=== PATIENT | female | born 1995 | race Caucasian/White ===

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

== ENCOUNTER 2017-06-01 21:44 | Emergency (ER) | payer BC ==
[~2017-06-01] VITALS: Ht 157.5 cm; Wt 68.0 kg
[~2017-06-01 21:44] MED LIST changes: +ACET250T3; +SODI3.5O4; +brimonidine
[2017-06-01] MEDS ORDERED: TETRACAINE 0.5% OPHTH SOLN 4 ML BTL (SINGLE DOSE ONLY) OP ONE (22:00)
[2017-06-01] MEDS ORDERED: ONDANSETRON 8 MG (ZOFRAN) ORAL DISSOLVE TAB PO ONE (22:00)
[2017-06-01] MEDS ORDERED: KETOROLAC 60 MG/2 ML VIAL IM ONE (22:00)
[2017-06-01] MEDS ORDERED: diphenhydrAMINE 50 MG/ML INJ (BENADRYL) IM ONE (22:00)
[2017-06-01] MEDS ORDERED: ONDANSETRON 4 MG (ZOFRAN) ORAL DISSOLVE TAB ONE (22:01)
--- NOTE | 2017-06-01 22:01 | ED Headache ---
General Chief Complaint: Head/Cervical Problems Stated Complaint: NAUSEA;MIGRAINE Source: patient Exam Limitations: no limitations History of Present Illness Date Seen by Provider: Jun 01, 2017 Time Seen by Provider: 21:56 Initial Comments To ER with a migraine, nausea without vomiting, pain behind the right eye since about 5 PM this evening. She had an energy drink thinking that the caffeine might help, she took a leftover Ultram at home in addition to Tylenol without improvement. She denies vision changes in the right eye, only pain behind the right eye. She has a history of glaucoma in the left eye secondary to a traumatic eye injury at the age of 6. She does have an implanted lens on the left with placement of a Xen Gel stent/shunt in january Timing/Duration: 4-6 hours Severity/Quality: moderate Location: frontal Modifying Factors: worse with exposure to light Associated Symptoms: nausea/vomiting Allergies and Home Medications Allergies Coded Allergies: neomycin (Verified Allergy, Unknown, 05/09/16) Home Medications Brimonidine Tartrate 5 Ml Btl, 1 DROP OS UD, (Reported) Patient Home Medication List Home Medication List Reviewed: Yes Review of Systems Constitutional: see HPI Eyes: See HPI, Photophobia Ears, Nose, Mouth, Throat: no symptoms reported Respiratory: no symptoms reported Cardiovascular: no symptoms reported Gastrointestinal: nausea, No vomiting Genitourinary: no symptoms reported Musculoskeletal: no symptoms reported Skin: no symptoms reported Past Eeonqib-Zcmkoz-Dskyqd Hx Patient Social History Alcohol Beverage of Choice: Beer 2nd Hand Smoke Exposure: No Recent Foreign Travel: No Contact w/Someone Who Travel: No Recent Hopitalizations: No Immunizations Up To Date Tetanus Booster (TDap): Less than 5yrs PED Vaccines UTD: No Seasonal Allergies Seasonal Allergies: No Past Medical History Surgeries: Yes (shunt left eye) Orthopedic Respiratory: No Cardiac: No Neurological: Yes Headaches /Migraines Reproductive Disorders: Yes Female Reproductive Disorders: Endometriosis Genitourinary: No Gastrointestinal: No Musculoskeletal: No Endocrine: No HEENT: Yes (L eye glaucoma) Glaucoma Cancer: No Psychosocial: No Integumentary: No Blood Disorders: No Family Medical History No Pertinent Family Hx Physical Exam Vital Signs Vital Signs - First Documented 06/01/17 21:46 Temp 96.7 Pulse 95 Resp 20 B/P (MAP) 133/81 (98) Pulse Ox 96 O2 Delivery Room Air Capillary Refill : General Appearance: WD/WN, no apparent distress HEENT: PERRL/EOMI, normal ENT inspection, other (the left eye has a very hazy cornea with irregular pupil, patient states this is normal.) Neck: non-tender, full range of motion Respiratory: no respiratory distress, no accessory muscle use Gastrointestinal: normal bowel sounds, non tender Extremities: normal range of motion, non-tender Psychiatric: alert, oriented x 3 Crainal Nerves: normal hearing, normal speech, PERRL Skin: normal color, warm/dry Progress/Results/Core Measures My Orders Orders - SHASHA ESTRADA APRN Tetracaine 0.5% Ophth Nanci Sdv (Tetracai (06/01/17 22:00) Ketorolac Injection (Toradol Injection) (06/01/17 22:00) Diphenhydramine Injection (Benadryl Inje (06/01/17 22:00) Ondansetron Oral Dissolve Tab (Zofran O (06/01/17 22:00) Ondansetron Oral Dissolve Tab (Zofran (06/01/17 22:01) Ondansetron Oral Dissolve Tab (Zofran (06/01/17 22:15) Medications Given in ED Current Medications Medications Dose Ordered Sig/Marianela Route Start Time Stop Time Status Last Admin Dose Admin Diphenhydramine HCl 25 mg ONCE ONCE IM 06/01/17 22:00 06/01/17 22:02 DC 06/01/17 22:14 25 MG Ketorolac Tromethamine 60 mg ONCE ONCE IM 06/01/17 22:00 06/01/17 22:02 DC 06/01/17 22:15 60 MG Ondansetron HCl 8 mg ONCE ONCE PO 06/01/17 22:15 06/01/17 22:41 DC 06/01/17 22:16 8 MG Tetracaine HCl 0.1 ml ONCE ONCE OP 06/01/17 22:00 06/01/17 22:01 DC 06/01/17 22:12 0.1 ML Vital Signs/I&O Vital Sign - Last 12Hours 06/01/17 21:46 Temp 96.7 Pulse 95 Resp 20 B/P (MAP) 133/81 (98) Pulse Ox 96 O2 Delivery Room Air Departure Communication (Admissions) Intraocular pressures measured on the left at 27 then 32 then 32. On the right eye measured 29, then 25, then 21. 2246- headache is now rated at a 3 out of 10. Patient is comfortable with going home at this point. Impression Primary Impression: H/O: glaucoma Additional Impression: Headache Disposition: HOME, SELF-CARE Condition: Improved Departure-Patient Inst. Decision time for Depature: 22:15 Referrals: [facility] (PCP/Family) Primary Care Physician Patient Instructions: Headache, Adult (DC) Add. Discharge Instructions: 1. Return to ER for any concerns 2. See her doctor as scheduled. All discharge instructions reviewed with patient and/or family. Voiced understanding. SHASHA ESTRADA AUTOMOTIVE TIRE TESTER Jun 01, 2017 22:01
[2017-06-01] MEDS ORDERED: ONDANSETRON 4 MG (ZOFRAN) ORAL DISSOLVE TAB PO ONE (22:15)
[2017-06-01 22:46] VITALS: BP 133/81
== END 2017-06-01 22:46 | disposition home or self-care (01) ==
LOC: EDUNIT# 21:44 → ER 21:45
DX: R51 Headache (principal); Z86.69 Personal history of other diseases of the nervous system and sense organs; Z88.1 Allergy status to other antibiotic agents; Z96.1 Presence of intraocular lens
CPT/HCPCS: 96372; 99284

== ENCOUNTER 2017-09-12 03:29 | Emergency (ER) | payer BC ==
[~2017-09-12] VITALS: Ht 157.5 cm; Wt 70.8 kg
[~2017-09-12 03:29] MED LIST changes: -DORZ10DR24 OS; +DORZ10DR8 OS
[2017-09-12] MEDS ORDERED: TETRACAINE 0.5% OPHTH SOLN 4 ML BTL (SINGLE DOSE ONLY) OU ONE (04:00)
--- NOTE | 2017-09-12 04:42 | ED Headache ---
General Chief Complaint: Head/Cervical Problems Stated Complaint: TAMAYO,RT EYE HURTS Nursing Triage Note: PT PRESENTS TO ER WITH COMPLAINT OF HEADACHE AND PAIN BEHIND HER RIGHT EYE. STATES SHE HAS HAD THE HEADACHE FOR 12 HOURS, TAKEN EXCEDRIN AND IBUPROFEN. Nursing Sepsis Screen: No Definite Risk (ERASMO DEY STUDENT) History of Present Illness Date Seen by Provider: Sep 12, 2017 Time Seen by Provider: 04:00 Initial Comments This is a 22 y/o female presenting to the ED with complaints of headache and pain behind the R eye that started around 1500 on 09/11. Pt has a history of migraines and glaucoma in the left eye. Pt reports recently having a lens implant in the L eye in January 2017. Patient states that she believes this is a migraine, but is worried she may be developing glaucoma in the R eye. Pt reports taking Excedrin and ibuprofen without relief. Pt admits to photophobia, nausea, dizziness, light headedness; denies vomiting, visual changes or L eye pain. Pt was seen in [facility] by Dr. Landeros in [place], [place] most recently. Pt is no longer taking prescription eye drops. Pt has had multiple surgeries on her L eye, she had a trauma when she was 9 and then developed glaucoma. She reports that she has minimal vision in the L eye and currently has corneal edema. (ERASMO DEY) Allergies and Home Medications Allergies Coded Allergies: neomycin (Verified Allergy, Unknown, 05/09/16) Home Medications Brimonidine Tartrate 5 Ml Btl, 1 DROP OS UD, (Reported) Ondansetron 4 Mg Tab.rapdis, 4 MG SL Q4H PRN for NAUSEA/VOMITING-1ST LINE Prescribed by: LINDA RUEDA on 09/12/17 0556 Sumatriptan Succinate 25 Mg Tablet, 25 MG PO UD Take one tablet at headache onset. Repeat in 2 hours if needed. Do not exceed 2 doses in one day. Do not take if . Prescribed by: LINDA RUEDA on 09/12/17 [id number] Patient Home Medication List Home Medication List Reviewed: Yes (ERASMO DEY STUDENT) Review of Systems Constitutional: see HPI, dizziness Eyes: Denies Blurred Vision, Denies Decreased Acuity; Pain, Photophobia, Other (PMH: Glaucoma in L eye with decreased vision ) Ears, Nose, Mouth, Throat: no symptoms reported Respiratory: no symptoms reported Cardiovascular: no symptoms reported Gastrointestinal: nausea; No vomiting Genitourinary: no symptoms reported Musculoskeletal: no symptoms reported (ERASMO DEY) Past Zbrcdkl-Sacctn-Nmwvqv Hx Patient Social History Alcohol Use: Occasionally Uses Number of Drinks Today: AA Alcohol Beverage of Choice: Beer Recreational Drug Use: No Smoking Status: Never a Smoker 2nd Hand Smoke Exposure: No Recent Foreign Travel: No Contact w/Someone Who Travel: No Recent Infectious Disease Expo: No Recent Hopitalizations: No (ERASMO DEY) Immunizations Up To Date Tetanus Booster (TDap): Less than 5yrs PED Vaccines UTD: No (ERASMO DEY) Seasonal Allergies Seasonal Allergies: No (ERASMO DEY) Past Medical History Surgeries: Yes (stenting and implant left eye) Orthopedic Respiratory: No Cardiac: No Neurological: Yes Headaches /Migraines Reproductive Disorders: Yes Female Reproductive Disorders: Endometriosis Genitourinary: No Gastrointestinal: No Musculoskeletal: No Endocrine: No HEENT: Yes (L eye glaucoma) Glaucoma Cancer: No Psychosocial: No Integumentary: No Blood Disorders: No (ERASMO DEY) Family Medical History No Pertinent Family Hx (ERASMO DEY) Physical Exam Vital Signs Vital Signs - First Documented 09/12/17 03:35 Temp 96.8 Pulse 80 Resp 20 B/P (MAP) 138/73 (94) Pulse Ox 99 O2 Delivery Room Air (LINDA PEDERSEN MD) Vital Signs Capillary Refill : Less Than 3 Seconds (ERASMO DEY) Height, Weight, BMI Height: 5'2.00" Weight: 156lbs. oz. 70.454393ro; 21.09 BMI Method:Stated General Appearance: WD/WN, no apparent distress HEENT: other (Right eye: PERRL, EOMI, gross visual acuity intact; Left eye: decreased vision and EOM, post surgical deformities) Cardiovascular: normal peripheral pulses, regular rate, rhythm, no edema, no gallop, no JVD, no murmur Respiratory: chest non-tender, lungs clear, normal breath sounds, no respiratory distress, no accessory muscle use Crainal Nerves: normal hearing, normal speech Coordination/Gait: normal finger to nose, normal gait Skin: normal color, warm/dry (ERASMO DEY STUDENT) Progress/Results/Core Measures Results/Orders My Orders Orders - LINDA PEDERSEN MD Tetracaine 0.5% Ophth Nanci Sdv (Tetracai (09/12/17 04:00) Ondansetron Oral Dissolve Tab (Zofran (09/12/17 04:45) Ketorolac Injection (Toradol Injection) (09/12/17 04:45) Im/Sub-Q Injection Non-Ab Ed (09/12/17 ) (LINDA PEDERSEN MD) Medications Given in ED (LINDA PEDERESN MD) Vital Signs/I&O 09/12/17 09/12/17 03:35 05:54 Temp 96.8 96.8 Pulse 80 73 Resp 20 18 B/P (MAP) 138/73 (94) 128/81 (94) Pulse Ox 99 97 O2 Delivery Room Air Room Air (LINDA PEDERSEN MD) Blood Pressure Mean: 94 Progress Progress Note : Time: 04:17 Progress Note Pt seen and examined. Tocometer was used to assess eye pressure due to history of glaucoma: R eye- 18, L- 25 with 85% accuracy. Repeated L eye with 27 at 80% accuracy. Due to surgery in L eye, this may be disrupting the tocometer accuracy. Pt denied any pain in the L eye. Pt symptoms are likely to be a migraine rather than glaucoma, will proceed with injection of Toradol and sublingual zofran (ERASMO DEY MED STUDENT) Progress Note : Progress Note Patient was interviewed, seen, and examined by me personally along with Erasmo 's MELBA Dey student. I reviewed her documentation. I agree with her history, assessment, plan, and exam with the following additions. Tocometer readings were normal in the right eye and slightly elevated in the left eye. The confidence was low on the left eye readings likely due to the surgical changes of the eye. I discussed the case with Dr. Kelley who is on-call for [facility] in [place]. He advised that the patient start some of her glaucoma drops previously prescribed and follow-up for a pressure check with her primary transmitter chief/materials planning analyst tomorrow. We discussed medications appropriate for migraine. He stated her eye condition should not limit her use of any medications for migraine. Patient was given Toradol and Zofran for treatment of her symptoms. She was given a prescription for Imitrex to try if she were to have any further headaches refractory to ibuprofen and Tylenol use. Exam: Gen.: Alert, oriented, no acute distress HEENT: normocephalic and atraumatic, right eye demonstrates no erythema or edema. Pupil is reactive to light and accommodation. Vision grossly intact. Left eye is disfigured due to prior surgery. Heart: Regular rate and rhythm Lungs: Clear to auscultation, normal effort Neuro: Alert, oriented, no acute distress, no focal deficits except vision impairment in the left eye (LINDA PEDERSEN MD) Departure Impression Primary Impression: Migraine headache Qualified Codes: G43.909 - Migraine, unspecified, not intractable, without status migrainosus Additional Impression: Glaucoma Qualified Codes: H40.9 - Unspecified glaucoma Disposition: 01 HOME, SELF-CARE Condition: Improved Departure-Patient Inst. Decision time for Depature: 05:42 (LINDA PEDERSEN MD) Referrals: [facility] (PCP/Family) Primary Care Physician Patient Instructions: Glaucoma, Migraine Headache (DC) Add. Discharge Instructions: For headaches, use ibuprofen up to 600 mg every 6 hours and Tylenol ( acetaminophen) up to 1000 mg every 6 hours as your primary medications. It is also acceptable to use caffeine or products containing caffeine. If these medications are not effectively treating her migraine within 30 minutes, try Imitrex as prescribed. For nausea take Zofran (ondansetron) as prescribed. Whenever possible, rest in a quiet, calm, dark environment as soon as headache develops. Stay well-hydrated with plenty of clear liquids. Follow-up with Dr. Sanchez or [facility] to have your eye pressures checked later today. Return to care if you have worsening symptoms. You may use a few rounds of glaucoma drops to treat the pressure in your left eye. Follow-up with your primary care provider as soon as possible to discuss further treatment and prevention of migraines. All discharge instructions reviewed with patient and/or family. Voiced understanding. Scripts Ondansetron (Zofran Odt) 4 Mg Tab.rapdis 4 MG SL Q4H PRN for NAUSEA/VOMITING-1ST LINE, #10 TAB 1 Refill Prov: LINDA PEDERSEN MD 09/12/17 Sumatriptan Succinate (Imitrex) 25 Mg Tablet 25 MG PO UD, #10 TAB Take one tablet at headache onset. Repeat in 2 hours if needed. Do not exceed 2 doses in one day. Do not take if . Prov: LINDA PEDERSEN MD 09/12/17 ERASMO DEY MED STUDENT Sep 12, 2017 04:42 LINDA PEDERSEN MD Sep 12, 2017 05:47
[2017-09-12] MEDS ORDERED: KETOROLAC 30 MG/ML VIAL IM ONE (04:45)
[2017-09-12] MEDS ORDERED: ONDANSETRON 4 MG (ZOFRAN) ORAL DISSOLVE TAB SL ONE (04:45)
[2017-09-12] MEDS ORDERED: ONDA4TAB8 SL (05:47)
[2017-09-12] MEDS ORDERED: SUMA25TA3 PO (05:47)
[2017-09-12 05:54] VITALS: BP 128/81
== END 2017-09-12 05:54 | disposition home or self-care (01) ==
LOC: EDUNIT# 03:29 → ER 03:33
DX: G43.909 Migraine, unspecified, not intractable, without status migrainosus (principal); H40.9 Unspecified glaucoma; Z88.1 Allergy status to other antibiotic agents
CPT/HCPCS: 96372; 99282

== ENCOUNTER 2017-11-06 13:24 | Observation (INO) | payer BC ==
[~2017-11-06] VITALS: Ht 157.5 cm; Wt 70.8 kg
[~2017-11-06 13:24] MED LIST changes: +ONDA4TAB8 SL; +SUMA25TA3 PO
[2017-11-06 16:30] VITALS: BP 120/56
[2017-11-06] MEDS ORDERED: CATHETER FLUSH 10 ML SYR IV PRN ×2 (16:45→18:00)
[2017-11-06 17:15] LABS: BASOPHILS % (AUTO) 0 % (0-10); EOSINOPHILS % (AUTO) 0 % (0-10); HEMATOCRIT 35 % (35-52); HEMOGLOBIN 12.3 G/DL (11.5-16.0); LYMPHOCYTES # (AUTO) 1.3 X 10^3 (1.0-4.0); LYMPHOCYTES % (AUTO) 9 % (12-44); MEAN CORPUSCULAR HEMOGLOBIN 30 PG (25-34); MEAN CORPUSCULAR HGB CONC 35 G/DL (32-36); MEAN CORPUSCULAR VOLUME 86 FL (80-99); MEAN PLATELET VOLUME 10.2 FL (7.4-10.4); MONOCYTES # (AUTO) 1.1 X 10^3 (0.0-1.0); MONOCYTES % (AUTO) 8 % (0-12); NEUTROPHILS # (AUTO) 11.2 X 10^3 (1.8-7.8); NEUTROPHILS % (AUTO) 83 % (42-75); PLATELET COUNT 280 10^3/uL (130-400); RED BLOOD COUNT 4.09 10^6/uL (4.35-5.85); RED CELL DISTRIBUTION WIDTH 12.7 % (10.0-14.5); WHITE BLOOD COUNT 13.5 10^3/uL (4.3-11.0)
[2017-11-06] MEDS: NS IV 1000 ML 1,000 ML IV SCH ×2 (17:15→19:00)
--- NOTE | 2017-11-06 17:23 | Diagnostic Imaging Report ---
INDICATION: Diarrhea, no bowel sounds. COMPARISON: None available. TECHNIQUE: Two radiographs of the abdomen are obtained dated November 06, 2017. FINDINGS: The visualized lung bases are clear. There is a generalized paucity of small bowel gas. Some gas is identified within the colon, though there is suggestion of mural thickening and thumbprinting involving the transverse colon within the right upper abdomen. No dilated loops of bowel. No free air. No suspicious calcifications overlying the renal shadows. No acute osseous abnormality. IMPRESSION: Generalized paucity of small bowel gas, which is nonspecific, though small bowel obstruction cannot be excluded. If there is a clinical concern for bowel obstruction, CT of the abdomen and pelvis should be obtained. Thumbprinting suggested involving the transverse colon, suggesting underlying colitis. Dictated by: Dictated on workstation # [id number]
[2017-11-06 17:37] LABS: ALANINE AMINOTRANSFERASE 8 U/L (0-55); ALBUMIN 3.4 GM/DL (3.2-4.5); ALKALINE PHOSPHATASE 48 U/L (40-136); BILIRUBIN,TOTAL 0.3 MG/DL (0.1-1.0); BUN/CREATININE RATIO 11; CALCIUM 7.9 MG/DL (8.5-10.1); CARBON DIOXIDE 22 MMOL/L (21-32); CHLORIDE 107 MMOL/L (98-107); CREATININE SERUM 0.73 MG/DL (0.60-1.30); GFR ESTIMATED > 60; GLUCOSE 96 MG/DL (70-105); MAGNESIUM 1.7 MG/DL (1.8-2.4); SODIUM 136 MMOL/L (135-145); TOTAL PROTEIN 6.3 GM/DL (6.4-8.2)
[2017-11-06] MEDS: CHOLESTYRAMINE 4 GM (QUESTRAN LITE, PREVALITE) PKT PO SCH (18:03)
[2017-11-06] MEDS: metroNIDAZOLE 500 MG (FLAGYL) TAB PO SCH (18:03)
[2017-11-06] MEDS: MAGNESIUM 1 GM/100 ML IVPB 100 ML IV SCH ×2 (18:07→19:06)
[2017-11-06] MEDS: ACETAMINOPHEN 325 MG TABLET PO PRN (19:31)
[2017-11-06] MEDS: POTASSIUM CL 10MEQ/50ML IVPB 50 ML IV SCH ×2 (20:19→20:22)
[2017-11-06] MEDS ORDERED: NS IV 1000 ML 1,000 ML IV SCH (20:31)
[2017-11-06] MEDS: NS W/KCL 20 MEQ/L 1,000 ML IV SCH (20:48)
[2017-11-06 20:52] VITALS: BP 111/59
[2017-11-06] MEDS: PROMETHAZINE INJ 25 MG/ML (PHENERGAN) AMP IVP PRN (21:10)
[2017-11-07] VITALS (7 sets, daily range): BP systolic 102–124; BP diastolic 55–76
[2017-11-07] MEDS: POTASSIUM CL 10MEQ/50ML IVPB 50 ML IV SCH ×2 (00:25→00:26)
[2017-11-07] MEDS: metroNIDAZOLE 500 MG (FLAGYL) TAB PO SCH ×5 (00:27→23:45)
[2017-11-07] MEDS: NS W/KCL 20 MEQ/L 1,000 ML IV SCH ×4 (02:38→23:46)
[2017-11-07 04:51] LABS: BASOPHILS % (AUTO) 0 % (0-10); EOSINOPHILS % (AUTO) 0 % (0-10); HEMATOCRIT 35 % (35-52); HEMOGLOBIN 11.9 G/DL (11.5-16.0); LYMPHOCYTES # (AUTO) 1.4 X 10^3 (1.0-4.0); LYMPHOCYTES % (AUTO) 17 % (12-44); MEAN CORPUSCULAR HEMOGLOBIN 30 PG (25-34); MEAN CORPUSCULAR HGB CONC 34 G/DL (32-36); MEAN CORPUSCULAR VOLUME 87 FL (80-99); MEAN PLATELET VOLUME 10.3 FL (7.4-10.4); MONOCYTES # (AUTO) 0.9 X 10^3 (0.0-1.0); MONOCYTES % (AUTO) 11 % (0-12); NEUTROPHILS # (AUTO) 5.9 X 10^3 (1.8-7.8); NEUTROPHILS % (AUTO) 72 % (42-75); PLATELET COUNT 265 10^3/uL (130-400); WHITE BLOOD COUNT 8.2 10^3/uL (4.3-11.0)
[2017-11-07 05:09] LABS: ALANINE AMINOTRANSFERASE 10 U/L (0-55); ALKALINE PHOSPHATASE 45 U/L (40-136); BILIRUBIN,TOTAL 0.2 MG/DL (0.1-1.0); BUN/CREATININE RATIO 8; CARBON DIOXIDE 19 MMOL/L (21-32); CHLORIDE 112 MMOL/L (98-107); CREATININE SERUM 0.63 MG/DL (0.60-1.30); GFR ESTIMATED > 60; GLUCOSE 92 MG/DL (70-105); POTASSIUM 4.1 MMOL/L (3.6-5.0); SODIUM 139 MMOL/L (135-145); TOTAL PROTEIN 5.4 GM/DL (6.4-8.2)
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
[2017-11-07] MEDS ORDERED: BRIMONIDINE 0.2% (ALPHAGAN) OPHTH SOLN 5 ML BTL OS SCH (09:15)
[2017-11-07] MEDS: CHOLESTYRAMINE 4 GM (QUESTRAN LITE, PREVALITE) PKT PO SCH (09:25)
[2017-11-07] MEDS: ACETAMINOPHEN 325 MG TABLET PO PRN (09:25)
[2017-11-07] MEDS ORDERED: IBUP-30 PO (09:53)
[2017-11-07] MEDS ORDERED: KETO10TA PO (09:53)
[2017-11-07] MEDS ORDERED: ACET-2267 PO (09:53)
[2017-11-07] MEDS ORDERED: NS 250 ML (IVPB) BAG IV ONE (11:00)
[2017-11-07] MEDS ORDERED: IOHEXOL 350 MG/ML 100 ML (OMNIPAQUE 350) VIAL IV ONE (11:00)
[2017-11-07] MEDS ORDERED: RECEIVED CONTRAST (Hold Metformin) IV SCH (11:00)
--- NOTE | 2017-11-07 13:26 | Diagnostic Imaging Report ---
PROCEDURE: CT abdomen and pelvis with contrast. TECHNIQUE: Multiple contiguous axial images were obtained through the abdomen and pelvis after administration of intravenous contrast. INDICATION: Abdominal pain, fever and diarrhea for four days. COMPARISON: No prior studies are available for comparison. FINDINGS: The lung bases are clear. The liver demonstrates generalized low density consistent with hepatic steatosis. No discrete liver mass is detected. The gallbladder is unremarkable. The pancreas and spleen are unremarkable. No adrenal mass is identified. The kidneys are unremarkable. Aorta is non-aneurysmal. The small bowel is normal in caliber, without evidence of obstruction. There is diffuse circumferential colonic wall thickening. This appears to involve the entire colon consistent with a nonspecific pancolitis. The appendix is visualized and unremarkable. No free fluid or loculated fluid collection is seen apart from trace free fluid in the pelvis which may be physiologic. No free air is identified. The bladder and uterus are unremarkable. IMPRESSION: 1. Hepatic steatosis. 2. Diffuse colonic wall thickening consistent with nonspecific pancolitis. No bowel obstruction, free air or abscess formation is identified. Dictated by: Dictated on workstation # [id number]
[2017-11-07] MEDS: CIPROFLOXACIN IV 400MG/200ML 200 ML IV SCH (15:39)
[2017-11-07] MEDS: ONDANSETRON 4 MG (ZOFRAN) ORAL DISSOLVE TAB PO PRN (16:35)
[2017-11-07] MEDS: PROMETHAZINE INJ 25 MG/ML (PHENERGAN) AMP IVP PRN (17:47)
[2017-11-08] VITALS: BP 113/64
[2017-11-08] MEDS: CIPROFLOXACIN IV 400MG/200ML 200 ML IV SCH (03:35)
[2017-11-08 04:00] VITALS: BP 108/64
[2017-11-08] MEDS: ONDANSETRON 4 MG (ZOFRAN) ORAL DISSOLVE TAB PO PRN (04:38)
[2017-11-08] MEDS: metroNIDAZOLE 500 MG (FLAGYL) TAB PO SCH (05:14)
[2017-11-08 05:37] LABS: BASOPHILS % (AUTO) 1 % (0-10); EOSINOPHILS # (AUTO) 0.2 10^3/uL (0.0-0.3); EOSINOPHILS % (AUTO) 4 % (0-10); HEMATOCRIT 37 % (35-52); HEMOGLOBIN 12.5 G/DL (11.5-16.0); LYMPHOCYTES # (AUTO) 1.7 X 10^3 (1.0-4.0); LYMPHOCYTES % (AUTO) 31 % (12-44); MEAN CORPUSCULAR HEMOGLOBIN 30 PG (25-34); MEAN CORPUSCULAR HGB CONC 34 G/DL (32-36); MEAN CORPUSCULAR VOLUME 87 FL (80-99); MONOCYTES # (AUTO) 0.8 X 10^3 (0.0-1.0); MONOCYTES % (AUTO) 15 % (0-12); NEUTROPHILS # (AUTO) 2.8 X 10^3 (1.8-7.8); NEUTROPHILS % (AUTO) 50 % (42-75); PLATELET COUNT 329 10^3/uL (130-400); RED BLOOD COUNT 4.23 10^6/uL (4.35-5.85); RED CELL DISTRIBUTION WIDTH 13.4 % (10.0-14.5); WHITE BLOOD COUNT 5.6 10^3/uL (4.3-11.0)
[2017-11-08 05:54] LABS: ALANINE AMINOTRANSFERASE 8 U/L (0-55); ALBUMIN 3.3 GM/DL (3.2-4.5); ALKALINE PHOSPHATASE 42 U/L (40-136); BILIRUBIN,TOTAL 0.2 MG/DL (0.1-1.0); BUN/CREATININE RATIO 7; CALCIUM 8.4 MG/DL (8.5-10.1); CARBON DIOXIDE 21 MMOL/L (21-32); CHLORIDE 109 MMOL/L (98-107); GFR ESTIMATED > 60; GLUCOSE 102 MG/DL (70-105); POTASSIUM 3.8 MMOL/L (3.6-5.0); SODIUM 137 MMOL/L (135-145); TOTAL PROTEIN 5.9 GM/DL (6.4-8.2)
[2017-11-08] MEDS: NS W/KCL 20 MEQ/L 1,000 ML IV SCH (06:37)
[2017-11-08] MEDS ORDERED: CHOL4PAC3 PO (07:58)
[2017-11-08] MEDS ORDERED: CIPR-225 PO (07:58)
[2017-11-08 08:00] VITALS: BP 110/70
--- NOTE | 2017-11-08 08:05 | Physician Progress Note ---
Standard Progress Note HPI/CC on Admission A 22-year-old white female who presented to the [facility] yesterday with complaints of a 48 hour history of diarrhea fever and abdominal pain. The patient had a temperature of 103 at the clinic with a pulse the 140. She was aggressively hydrated with 2 L of IV fluids because of continued symptoms was then admitted to the hospital here for observation. Patient is continued to run fever overnight and C. difficile toxin 1 is negative. KUB shows some pain along the transverse colon. She gives no past history of diarrhea or change in bowel habits. No fever chills or weight loss. This morning the patient is feeling better. She is only had one slight diarrhea movement this morning. She slept all night and only got up once to urinate but has not had any further diarrhea overnight. She had some nausea this morning after getting her Flagyl. C. difficile toxin was negative CT scan showed pancolitis consistent with an infectious etiology. Sedimentation rate is 17 so this argues against inflammatory bowel disease. The patient is hungry this morning and feels strong enough to go home perhaps this afternoon. Progress Notes/Assess & Plan Date Seen 11/08/17 Time Seen by Provider: 07:30 Assess & Plan/Chief Complaint Infectious diarrhea-etiology pending Hypokalemia resolved Hypomagnesemia resolved Glaucoma-chronic Pancolitis most likely secondary from infectious diarrhea Labs Laboratory Tests 11/06/17 17:08 11/07/17 04:25 11/08/17 05:10 Focused Exam Sepsis Stage: Ruled Out Lactate Level 11/06/17 17:08: Lactic Acid Level 0.93 MEHRAN UMANA MD Nov 08, 2017 08:05
[2017-11-08] MEDS: CHOLESTYRAMINE 4 GM (QUESTRAN LITE, PREVALITE) PKT PO SCH (10:00)
[2017-11-08 15:15] VITALS: BP 110/70
== END 2017-11-08 15:03 | disposition home or self-care (01) ==
LOC: 4TH 16:20 → UNDOADMOB 16:34 → 4TH 11-08 11:33 → UNDODISOB 11-08 15:15
PROVIDERS: ADMIT Internal Medicine; ATTEND Internal Medicine
DX: E86.0 Dehydration (principal); R19.7 Diarrhea, unspecified; K51.00 Ulcerative (chronic) pancolitis without complications; E87.1 Hypo-osmolality and hyponatremia; E83.42 Hypomagnesemia
CPT/HCPCS: 36415; 74019; 74177; 80053; 83605; 83735; 84703; 85025; 85652; 87040; 87045; 87046; 87324; 87449; 99211; G0378

== ENCOUNTER 2018-10-15 22:07 | Emergency (ER) | payer BC ==
[~2018-10-15] VITALS: Ht 157.5 cm; Wt 74.8 kg
[~2018-10-15 22:07] MED LIST changes: +ACET-2267 PO; +CHOL4PAC3 PO; +CIPR-225 PO; +IBUP-30 PO; +KETO10TA PO
[2018-10-15] MEDS ORDERED: PROCHLORPERAZINE 10 MG/2ML INJ (COMPAZINE) IV ONE (23:30)
[2018-10-15] MEDS ORDERED: diphenhydrAMINE 50 MG/ML INJ (BENADRYL) IVP ONE (23:30)
[2018-10-15] MEDS ORDERED: ACETAMINOPHEN 325 MG TABLET PO ONE (23:30)
[2018-10-15] MEDS ORDERED: KETOROLAC 30 MG/ML VIAL IVP ONE (23:30)
--- NOTE | 2018-10-15 23:33 | ED Headache ---
General Chief Complaint: Head/Cervical Problems Stated Complaint: MIGRAINE,VOMITING Nursing Triage Note: Pt amb to room #6 w/o difficulty. a&ox4. C/o frontal lobe headache with nausea and vomiting. Pt reports onset of symptoms to be approx 1500 on this day. Pt reports to have taken Ketorolac, and zofran with little relief. Pt reports to have experienced approx 5 episodes of emesis throguhout this day. Pt reports hx migraines. Photophobia noted. Nursing Sepsis Screen: No Definite Risk Source: patient Exam Limitations: no limitations History of Present Illness Date Seen by Provider: Oct 15, 2018 Time Seen by Provider: 23:16 Initial Comments Patient presents to ER with chief complaint of a headache consistent with her history of migraine headaches starting about 2:00 this afternoon. She tried Excedrin and when that did not help with some sleep she took a Toradol tablet and Zofran and at about 5:00 in the afternoon. She immediately vomited it back up and does not think she got any benefit from it. She has been trying to rest unsuccessfully. Her headache is frontal, throbbing without aura and consistent with her history. No weakness numbness tingling fever chills or sweats. She does not take anything for control and is on her period presently. Allergies and Home Medications Allergies Coded Allergies: neomycin (Verified Allergy, Unknown, 05/09/16) Home Medications Acetaminophen 500 Mg Tablet, 500-1,000 MG PO Q6H PRN for PAIN-MILD, (Reported) Cholestyramine/Aspartame 4 Gm Powd.pack, 4 GM PO BID PRN for DIARRHEA Prescribed by: MEHRAN UMANA on 11/08/17 0758 Ciprofloxacin HCl 500 Mg Tablet, 500 MG PO BID Prescribed by: MEHRAN UMANA on 11/08/17 0758 Ibuprofen 200 Mg Tablet, 400-600 MG PO Q6H PRN for PAIN-MILD, (Reported) Ketorolac Tromethamine 10 Mg Tablet, 10 MG PO DAILY PRN for MIGRAINE, (Reported) Ondansetron 4 Mg Tab.rapdis, 4 MG SL Q4H PRN for NAUSEA/VOMITING-1ST LINE Prescribed by: LINDA RUEDA on 09/12/17 0180 Patient Home Medication List Home Medication List Reviewed: Yes Review of Systems Review of Systems Constitutional: No chills, No diaphoresis Eyes: Denies Blindness, Denies Blurred Vision, Denies Drainage Ears, Nose, Mouth, Throat: denies ear pain, denies ear discharge Respiratory: No cough, No short of breath Cardiovascular: No chest pain, No edema Past Wjqlbto-Xygxim-Lqsjju Hx Patient Social History Alcohol Use: Rarely Uses Number of Drinks Today: AA Alcohol Beverage of Choice: Beer Recreational Drug Use: No Smoking Status: Never a Smoker 2nd Hand Smoke Exposure: No Recent Foreign Travel: No Contact w/Someone Who Travel: No Recent Infectious Disease Expo: No Recent Hopitalizations: No Immunizations Up To Date Tetanus Booster (TDap): Less than 5yrs PED Vaccines UTD: No Date of Pneumonia Vaccine: 1997 Seasonal Allergies Seasonal Allergies: No Past Medical History Surgeries: Yes (stenting and implant left eye) Eye Surgery, Orthopedic Respiratory: No Cardiac: No Neurological: Yes Headaches /Migraines Reproductive Disorders: Yes Female Reproductive Disorders: Endometriosis Genitourinary: No Gastrointestinal: No Musculoskeletal: No Endocrine: No HEENT: Yes (L eye glaucoma SURGERY IN 2009) Glaucoma Cancer: No Psychosocial: Yes Depression Integumentary: No Blood Disorders: No Family Medical History No Pertinent Family Hx Physical Exam Vital Signs Vital Signs - First Documented 10/15/18 22:33 Temp 96.5 Pulse 80 Resp 16 B/P (MAP) 133/74 (93) Pulse Ox 97 O2 Delivery Room Air Capillary Refill : Less Than 3 Seconds Height, Weight, BMI Height: 5'2.00" Weight: 165lbs. 0.0oz. 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) Neck: non-tender, full range of motion, normal inspection Cardiovascular: normal peripheral pulses, regular rate, rhythm Respiratory: lungs clear, normal breath sounds, no respiratory distress, no accessory muscle use Gastrointestinal: normal bowel sounds, non tender, soft Psychiatric: alert, oriented x 3 Progress/Results/Core Measures Results/Orders My Orders Orders - IVON KEENAN Urine Bedside (10/15/18 23:24) Diphenhydramine Injection (Benadryl Inje (10/15/18 23:30) Prochlorperazine Injection (Compazine In (10/15/18 23:30) Ketorolac Injection (Toradol Injection) (10/15/18 23:30) Acetaminophen Tablet/Caplet (Tylenol T (10/15/18 23:30) Methylprednisolone Acetate Inj (Depo-Med (10/15/18 23:45) Medications Given in ED Current Medications Medications Dose Ordered Sig/Marianela Route Start Time Stop Time Status Last Admin Dose Admin Acetaminophen 650 mg ONCE ONCE PO 10/15/18 23:30 10/15/18 23:31 DC 10/15/18 23:35 650 MG Diphenhydramine HCl 25 mg ONCE ONCE IVP 10/15/18 23:30 10/15/18 23:31 DC 10/15/18 23:39 25 MG Ketorolac Tromethamine 30 mg ONCE ONCE IVP 10/15/18 23:30 10/15/18 23:31 DC 10/15/18 23:39 30 MG Prochlorperazine Edisylate 10 mg ONCE ONCE IV 10/15/18 23:30 10/15/18 23:31 DC 10/15/18 23:39 10 MG Vital Signs/I&O 10/15/18 22:33 Temp 96.5 Pulse 80 Resp 16 B/P (MAP) 133/74 (93) Pulse Ox 97 O2 Delivery Room Air Blood Pressure Mean: 93 Progress Progress Note #1: Time: 23:31 Progress Note If the urine from seat test is negative we'll give her Compazine, Toradol and Benadryl IV as well as Tylenol oral. Depo-Medrol IM. Progress Note #2: Time: 23:48 Progress Note The patient declined a steroid shot. Departure Impression Primary Impression: Migraine Qualified Codes: G43.009 - Migraine without aura, not intractable, without status migrainosus Disposition: 01 HOME, SELF-CARE Condition: Stable Departure-Patient Inst. Decision time for Depature: 23:45 Referrals: [facility] (PCP/Family) Primary Care Physician Patient Instructions: Migraine Headache (DC) Add. Discharge Instructions: Get plenty of sleep. Continue use ibuprofen 800 mg every 8 hours or you're ketorolac. Tylenol 1000 g every 8 hours. Zofran as prescribed. All discharge instructions reviewed with patient and/or family. Voiced understanding. Work/School Note: Work Release Form Date Seen in the Emergency Department: Oct 15, 2018 Return to Work: Oct 17, 2018 Restrictions: No Restrictions IVON KEENAN Oct 15, 2018 23:33
[2018-10-15] MEDS ORDERED: methylPREDNISolone 40 MG/ML (DEPO MEDROL) VIAL IM ONE (23:45)
[2018-10-15 23:52] VITALS: BP 123/85
== END 2018-10-15 23:52 | disposition home or self-care (01) ==
LOC: EDUNIT# 22:07 → ER 22:08
DX: G43.909 Migraine, unspecified, not intractable, without status migrainosus (principal); F32.9 Major depressive disorder, single episode, unspecified; Z88.1 Allergy status to other antibiotic agents
CPT/HCPCS: 84703